=== PATIENT | male | born 1970 | race Caucasian/White ===

== ENCOUNTER 2017-10-03 16:33 | Inpatient (IN) | payer SELFPAY ==
[~2017-10-03] VITALS: Ht 188 cm; Wt 88.2 kg
[2017-10-03] VITALS (8 sets, daily range): BP systolic 102–118; BP diastolic 60–73
--- NOTE | ~2017-10-03 | EKG ---
[place], [place] ELECTROCARDIOGRAM REPORT NAME: JUNG BOLANOS UNIT #: [id number] ROOM: 401 DOCTOR: MCKENNA DRAFT REPORT BIRTHDATE: [birth year] [facility] Test Date: 2017-10-03 Test Time: 17:17:01 Pat Name: JUNG BOLANOS Department: Room: 401 Gender: M Financial Underwriter: : [id number] Requested By: MIO SNEED Order Number: [id number] Reading MD: Martin Pineda MD Measurements Intervals [place] Rate: 93 P: 42 MS: 174 QRS: 64 QRSD: 107 T: 32 QT: 311 QTc: 387 Interpretive Statements Sinus rhythm Probable left atrial enlargement RSR' in V1 or V2, right VCD or RVH Electronically Signed On 10-04-2017 7:01:22 PDT by Martin Pineda MD CM:EKGRPT:ELECTROCARDIOGRAM REPORT 1717 [id number] MIO SOLORZANO DRAFT REPORT MIO SNEED DO
[2017-10-03 17:35] LABS: BASO % 0.3 % (0.0-1.0); HEMATOCRIT 46.1 % (42.0-52.0); LYMPH # 0.3 10*3/uL (1.3-4.4); LYMPH % 4.3 % (27.0-41.0); MEAN CELL VOLUME 86.7 fl (80.0-94.0); MEAN CORPUSCULAR HGB 30.1 pg (27.0-31.0); MEAN CORPUSCULAR HGB CONC 34.7 g/dl (33.0-37.0); MEAN PLATELET VOLUME 10.1 fl (9.6-12.3); MONO # 0.4 10*3/uL (0.1-1.0); MONO % 5.4 % (3.0-9.0); NEUT % 89.5 % (47.0-73.0); PLATELET COUNT AUTOMATED 116 10*3/uL (130-400); RED BLOOD COUNT 5.32 10*6/uL (4.50-5.90); RED CELL DISTRI WIDTH 12.4 % (0-14.5); WHITE BLOOD COUNT 7.9 10*3/uL (4.8-10.8)
[2017-10-03 17:44] LABS: ACT PARTIAL THROMBO TIME 24.2 SECONDS (20.8-31.5); INTERNATIONAL NORM RATIO 1.1 (2.0-3.5)
[2017-10-03 17:55] LABS: ALBUMIN 3.4 gm/dl (3.1-4.5); ALKALINE PHOSPHATASE 28 U/L (45-117); BUN 16 mg/dl (7-24); CHLORIDE 104 mmol/L (98-107); CREATININE 0.97 mg/dL (0.70-1.30); LIPASE 149 U/L (73-393); SGOT/AST 112 IU/L (3-35); SGPT/ALT 143 U/L (12-78); SODIUM 138 mmol/L (136-145); TOTAL PROTEIN 7.2 gm/dL (6.4-8.2)
[2017-10-03 17:59] LABS: TROPONIN I < 0.015 ng/ml (<0.045)
[2017-10-03 18:58] LABS: BILIRUBIN 2+ (NEGATIVE); BLOOD 3+ (NEGATIVE); GLUCOSE TRACE (NEGATIVE); KETONE 1+ (NEGATIVE); LEUKO ESTERASE NEGATIVE (NEGATIVE); NITRITE POSITIVE (NEGATIVE); SPECIFIC GRAVITY >= 1.030 (1.005-1.030); UROBILINOGEN >= 8.0 E.U./dl (0.2-1.0)
[2017-10-03 19:03] LABS: CLARITY SL CLOUDY (CLEAR)
[2017-10-03 19:04] LABS: COLOR ORANGE (YELLOW)
[2017-10-03 19:06] LABS: BACTERIA TRACE; MUCOUS 2+
[2017-10-04] VITALS: BP 101/45
[2017-10-04 05:20] LABS: ALBUMIN 3.3 gm/dl (3.1-4.5); BUN 13 mg/dl (7-24); CHLORIDE 104 mmol/L (98-107); CHOLESTEROL 140 mg/dL (<200); CREATININE 0.93 mg/dL (0.70-1.30); FREE T4 1.02 ng/dl (0.76-1.46); HDL CHOLESTEROL 37 mg/dl (40-60); LDL CHOLESTEROL 76 mg/dL (9-159); POTASSIUM 3.8 mmol/L (3.5-5.1); SGOT/AST 103 IU/L (3-35); SGPT/ALT 138 U/L (12-78); SODIUM 138 mmol/L (136-145); TOTAL PROTEIN 6.8 gm/dL (6.4-8.2); TRIGLYCERIDES 133 mg/dl (<150); VLDL CHOLESTEROL 27 mg/dL (6-40)
[2017-10-04 05:25] LABS: ALKALINE PHOSPHATASE 26 U/L (45-117); THYROID STIM HORMONE (HS) 0.737 uIU/ml (0.358-4.75)
[2017-10-04 05:55] LABS: BASO % 0.3 % (0.0-1.0); EOS % 0.1 % (1.0-4.0); HEMATOCRIT 45.5 % (42.0-52.0); HEMOGLOBIN 15.1 g/dl (14.0-18.0); LYMPH # 0.6 10*3/uL (1.3-4.4); LYMPH % 8.3 % (27.0-41.0); MEAN CORPUSCULAR HGB 29.8 pg (27.0-31.0); MEAN CORPUSCULAR HGB CONC 33.2 g/dl (33.0-37.0); MEAN PLATELET VOLUME 10.5 fl (9.6-12.3); MONO # 0.4 10*3/uL (0.1-1.0); MONO % 5.9 % (3.0-9.0); NEUT % 85.1 % (47.0-73.0); PLATELET COUNT AUTOMATED 119 10*3/uL (130-400); RED BLOOD COUNT 5.06 10*6/uL (4.50-5.90); RED CELL DISTRI WIDTH 12.8 % (0-14.5); WHITE BLOOD COUNT 7.1 10*3/uL (4.8-10.8)
[2017-10-04 06:08] LABS: MEAN CELL VOLUME 89.9 fl (80.0-94.0)
[2017-10-04 07:42] LABS: VITAMIN D, 25-HYDROXY 30.4 ng/mL (30-100)
[2017-10-04 08:00] VITALS: BP 130/74
[2017-10-04 12:00] VITALS: BP 116/66
[2017-10-04 16:00] VITALS: BP 114/69
[2017-10-04 20:00] VITALS: BP 112/76
[2017-10-05 01:13] VITALS: BP 106/76
[2017-10-05 06:08] LABS: HEPATITIS B SURFACE AG Negative (Negative); HEPATITIS C VIRUS ANTIBODY 0.1 s/co (0.0-0.9)
[2017-10-05 08:00] VITALS: BP 128/70
[2017-10-05 12:00] VITALS: BP 106/69
[2017-10-05] MEDS ORDERED: CIPRO500 MG PO (13:44)
== END 2017-10-05 14:12 | disposition home or self-care (01) | DRG 872 ==
LOC: ED 16:33 → EDHOLD 21:21 → 4E 21:21
PROVIDERS: Emergency Medicine; Internal Medicine
DX: A41.9 Sepsis, unspecified organism (principal); D69.6 Thrombocytopenia, unspecified; R82.2 Biliuria; N39.0 Urinary tract infection, site not specified; R17 Unspecified jaundice; R74.0 Nonspecific elevation of levels of transaminase and lactic acid dehydrogenase [LDH]; R79.82 Elevated C-reactive protein (CRP); R79.89 Other specified abnormal findings of blood chemistry; R80.9 Proteinuria, unspecified; R82.4 Acetonuria; R31.9 Hematuria, unspecified; R65.20 Severe sepsis without septic shock; R73.9 Hyperglycemia, unspecified; F17.210 Nicotine dependence, cigarettes, uncomplicated; Z72.89 Other problems related to lifestyle; Z83.6 Family history of other diseases of the respiratory system; Z71.6 Tobacco abuse counseling